=== PATIENT | female | born 1980 | race Caucasian/White ===

== ENCOUNTER 2016-10-06 18:20 | Emergency (ER) | payer BC, MEDICAID, OTHER ==
--- NOTE | 2016-10-06 19:49 | ER Document Report ---
ED Medical Screen (RME) - General Chief Complaint: High Blood Pressure Stated Complaint: BLOOD PRESSURE CONCERN Notes: 36 yo female c/o cough x 2 weeks. Seen at Urgent Care sent for elevated BP. 215/118. No known hx/o HTN. Has been taking OTC coug/cold med. + headache x several days. temporal. no fever. nonproductive cough. no shortness of breath or chest pain. Pt in NAD, no neurologic deficits. Discussed with Dr Oliver. Does not recommend anti-hypertensive med in RME
[2016-10-06 20:11] LABS: ABSOLUTE EOSINOPHILS # (AUTO) 0.3 10^3/uL (0.0-0.6); ABSOLUTE LYMPHOCYTES (AUTO) 2.1 10^3/uL (0.5-4.7); ABSOLUTE MONOCYTES (AUTO) 0.8 10^3/uL (0.1-1.4); BASOPHILS % (AUTO) 0.5 % (0-2); HEMATOCRIT 36.8 % (36.0-47.0); HEMOGLOBIN 12.4 g/dL (12.0-15.5); HGB HCT DIFFERENCE 0.4; LYMPHOCYTES % (AUTO) 22.5 % (13-45); MEAN CORPUSCULAR HEMOGLOBIN 26.1 pg (27.0-33.4); MEAN CORPUSCULAR HGB CONC 33.8 g/dL (32.0-36.0); MEAN CORPUSCULAR VOLUME 77 fl (80-97); MONOCYTES % (AUTO) 9.1 % (3-13); RED BLOOD COUNT 4.77 10^6/uL (3.72-5.28); RED CELL DISTRIBUTION WIDTH 15.6 % (11.5-14.0); SEGMENTED NEUTROPHILS % (AUTO) 64.9 % (42-78); WHITE BLOOD COUNT 9.2 10^3/uL (4.0-10.5)
[2016-10-06 20:21] LABS: APPEARANCE,URINE SLIGHTLY-CLOUDY; BILIRUBIN,URINE NEGATIVE (NEGATIVE); GLUCOSE, URINE NEGATIVE (NEGATIVE); KETONES,URINE NEGATIVE (NEGATIVE); LEUKOCYTE ESTERASE,URINE SMALL (NEGATIVE); NITRITE,URINE POSITIVE (NEGATIVE); PROTEIN,URINE >=500 mg/dL (NEGATIVE); URINE SPECIFIC GRAVITY 1.022; UROBILINOGEN,URINE NEGATIVE mg/dL (<2.0)
[2016-10-06 20:32] LABS: ALANINE AMINOTRANSFERASE 60 U/L (9-52); ALBUMIN 4.4 g/dL (3.5-5.0); ALKALINE PHOSPHATASE 63 U/L (38-126); ANION GAP 13 (5-19); ASPARTATE AMINO TRANSFERASE 31 U/L (14-36); BILIRUBIN,TOTAL 0.4 mg/dL (0.2-1.3); BLOOD UREA NITROGEN 14 mg/dL (7-20); CARBON DIOXIDE 29 mmol/L (22-30); CHLORIDE 102 mmol/L (98-107); CREATININE RESULT 0.82 mg/dL (0.52-1.25); GLUCOSE 121 mg/dL (75-110); POTASSIUM 3.5 mmol/L (3.6-5.0); SODIUM 143.8 mmol/L (137-145); TOTAL PROTEIN 7.6 g/dL (6.3-8.2)
[2016-10-06 20:52] VITALS: BP 157/116
[2016-10-06] MEDS ORDERED: BENZONATATE 100 MG CAPSULE PO ONE (20:53)
[2016-10-06] MEDS ORDERED: ALBUTEROL SULFATE HFA (90 MCG/PUFF) 200 PUFF/8.5 GM MDI IH ONE (20:54)
--- NOTE | 2016-10-06 20:58 | ER Document Report ---
ED General - General Chief Complaint: High Blood Pressure Stated Complaint: BLOOD PRESSURE CONCERN Notes: Patient is a 36-year-old female without past medical history who was referred to the emergency department for concerns of hypertension by an urgent care after going for a persistent cough. Patient admits taking a large amount of cough medicine that contains phenylephrine and guanfacine for the past 2 weeks for persistent cough. States she had just taken a dose this medication prior to entering the urgent care. States that she went there for a cough but was not treated for this and instead the staff focused on her asymptomatic blood pressure and referred her to the emergency department for further assessment. She has no prior history of hypertension. She denies any symptoms at the time my assessment beyond a persistent cough which likewise was not treated in triage. She denies any headache, chest pain, shortness of breath, or episodes of passing out. She has not seen her primary care physician regarding her hypertension. She denies anything improves or worsens for cough although she has tried the [id number] medications without success. Denies any pain. No history of similar symptoms in the past. Denies any history of asthma or COPD. She has not had any fever or constitutional symptoms. - HPI Onset: Other - two weeks Onset/Duration: Gradual, Constant Quality of pain: No pain Severity: None Pain Level: Denies Associated symptoms: None Exacerbated by: Denies Relieved by: Denies Similar symptoms previously: No Recently seen / treated by doctor: No - Related Data Allergies/Adverse Reactions: No Known Allergies Allergy (Unverified 10/06/16 20:06) Past Medical History - General Information source: Patient - Social History Smoking Status: Never Smoker Frequency of alcohol use: None Drug Abuse: None Family History: Reviewed & Not Pertinent Past Surgical History: Reports: Hx Section - x2 - Immunizations Hx Diphtheria, Pertussis, Tetanus Vaccination: Yes Review of Systems - Review of Systems Notes: Constitutional: Negative for fever. HENT: Negative for sore throat. Eyes: Negative for visual changes. Cardiovascular: Negative for chest pain. Respiratory: Negative for shortness of breath. Positive for persistent cough Gastrointestinal: Negative for abdominal pain, vomiting or diarrhea. Genitourinary: Negative for dysuria. Musculoskeletal: Negative for back pain. Skin: Negative for rash. Neurological: Negative for headaches, weakness or numbness. 10 point ROS negative except as marked above and in HPI. Physical Exam - Vital signs Vitals: Temp Pulse Resp BP Pulse Ox 98.3 F 114 H 12 215/118 H 99 10/06/16 19:25 10/06/16 19:25 10/06/16 19:25 10/06/16 19:25 10/06/16 19:25 Interpretation: Hypertensive, Tachycardic - Tachycardia resolved the time of my assessment with a heart rate of 89 Notes: PHYSICAL EXAMINATION: GENERAL: Well-appearing, well-nourished and in no acute distress. HEAD: Atraumatic, normocephalic. EYES: Pupils equal round and reactive to light, extraocular movements intact, sclera anicteric, conjunctiva are normal. ENT: nares patent, oropharynx clear without exudates. Moist mucous membranes. NECK: Normal range of motion, supple without lymphadenopathy LUNGS: Breath sounds clear to auscultation bilaterally and equal. No wheezes rales or rhonchi. HEART: Regular rate and rhythm without murmurs ABDOMEN: Soft, nontender, normoactive bowel sounds. No guarding, no rebound. No masses appreciated. EXTREMITIES: Normal range of motion, no pitting or edema. No cyanosis. NEUROLOGICAL: No focal neurological deficits. Moves all extremities spontaneously and on command. PSYCH: Normal mood, normal affect. SKIN: Warm, Dry, normal turgor, no rashes or lesions noted. Course - Re-evaluation Re-evalutation: 10/07/16 04:00 Presentation of asymptomatic hypertension. Patient denies any symptoms concerning for SAH, dissection, ME, or encephalopaty. Alert, oriented, and denies any symptoms at time of assessment. Normal neuro exam. I have discussed critical importance of follow up with PCP within 1 week and increased risk of devastating stroke, heart attack, respiratory distress, and other life threatening complications if blood pressure is not reduced appropriately. Diet and exercise habits also discussed. Unfortunately, prior to my assessment multiple labs were ordered in triage that do not believe are indicated. Likewise a chest x-ray was ordered for patient's persistent coughing which showed an incidental calcified lung mass on the right side which has been discussed with the patient. Regarding patient's cough: Presentation is most consistent with a viral upper respiratory infection. Patient is overall well appearance, vitals within normal limits, well-hydrated. Patient denies any headache, neck pain, and has no evidence of meningismus on examination. Lungs are clear bilaterally. No evidence of respiratory distress. Based on clinical exam and history, I do not suspect an acute pneumonia, meningitis, strep pharyngitis, or an acute encephalitis. At this time will discharge with return precautions and follow-up recommendations. Verbal discharge instructions given a the bedside and opportunity for questions given. Medication warnings reviewed. Patient is in agreement with this plan and has verbalized understanding of return precautions and the need for primary care follow-up in the next 24-72 hours. - Vital Signs Vital signs: Temp Pulse Resp BP Pulse Ox 98.3 F 114 H 16 157/116 H 99 10/06/16 19:25 10/06/16 19:25 10/06/16 20:18 10/06/16 20:18 10/06/16 19:25 - Laboratory Result Diagrams: 10/06/16 19:50 10/06/16 19:50 Laboratory results interpreted by me: 10/06/16 10/06/16 10/06/16 19:50 19:50 19:50 MCV 77 L MCH 26.1 L RDW 15.6 H Potassium 3.5 L Glucose 121 H ALT 60 H Urine Protein >=500 H Urine Blood LARGE H Urine Nitrite POSITIVE H Ur Leukocyte Esterase SMALL H - Diagnostic Test Radiology reviewed: Image reviewed, Reports reviewed Radiology results interpreted by me: 10/07/16 04:03 Chest x-ray: Small calcified perihilar mass on the right Discharge - Discharge Clinical Impression: Bronchitis Condition: Good Disposition: HOME, SELF-CARE Additional Instructions: You were seen for symptoms most consistent with bronchitis. This can take up to 12 weeks to fully resolve. This is generally due to a viral infection. Please follow-up with your primary doctor in the next 2-3 days. You will also need to follow-up regarding your elevated blood pressure which may be due to your current use of cold medications. Remember, high blood pressure is a long-term risk factor for multiple medical problems including heart attack and stroke. However, the blood pressure in of itself will not cause you to have an acute stroke or heart attack over the course of just several days or weeks. You need to have a gradual reduction of your blood pressure back to normal levels over the next several months in conjunction with your primary care physician. As I aslo discussed with you, incidentally found a small calcified mass in the right lung of unclear etiology. This does not mean that you have cancer. You need to have this finding followed up with your primary care doctor and will likely require a repeat chest x-ray in the coming months to ensure this area has not increased in size. Return if you develop headache, weakness, numbness, chest pain, pass out, or have any other symptoms that are concerning to you. Please also return if you develop worsening cough, vomiting, fever >100.4, pass out, begin coughing blood, or have any other symptoms that are concerning to you. Please use the medications prescribed today as directed. Prescriptions: Benzonatate [Tessalon Perle 100 mg Capsule] 100 mg PO Q8HP PRN #40 cap PRN Reason: Forms: Elevated Blood Pressure, Return to Work
== END 2016-10-06 21:20 | disposition home or self-care (01) ==
LOC: ER 18:20
DX: J40 Bronchitis, not specified as acute or chronic (principal); I10 Essential (primary) hypertension; R05 Cough
CPT/HCPCS: 99283; 36415; 85025; 80053; 81001; 71020; J3490